=== PATIENT | female | born 1960 | race Two or more races ===

== ENCOUNTER → 2018-05-21 | Outpatient (CLI) | payer OTHER ==
[2016-02-26 17:24] VITALS: BP 149/63
[~2018-05-21] MED LIST: CITA40TA5 PO; CYCL10TA2 PO; DOXY100T PO; INSU100V31 SQ; INSU100V8 SQ; LOSA50TA6 PO; METF10003 PO; METO200T46 PO; OXYC-323 PO; OXYC-328 PO; PANT40TA5 PO; PREG75CA PO; ZOLP10TA PO; [UNRECOGNIZED DRUG - CODE] MC
--- NOTE | 2018-05-21 12:28 | KCIC ---
Two-view left hip dated 05/21/2018. No comparison available. Clinical data indication: Pain after fall. FINDINGS: The left hip show normal bony alignment. No displaced fracture. No acute osseous or articular abnormality. Mild hypertrophic change at the left hip joint. IMPRESSION: No evidence of displaced fracture. If there is clinical concern for occult fracture or insufficiency fracture, MRI or CT would better evaluate. Electronically signed by: Junior Escalante MD (05/21/2018 12:25 PM) [facility]
--- NOTE | 2018-05-22 13:41 | KCIC ---
Bilateral digital screening mammograms: Reason for examination: Routine screening. Comparison is made to previous study dated 07/17/2013. Interpretation was made with the benefit of CAD. The skin and nipples show no abnormalities. No abnormal axillary lymph nodes are seen. The breast parenchyma shows scattered fibroglandular density. (Breast density: Category B.) There continues to be a small nodular density laterally in the left breast on cc view probably at 2:00 position. There are no new dominant masses, suspicious calcifications or architectural distortions. Some benign calcifications are present. Impression: No evidence of malignancy. Recommend routine screening. BI-RADS category 2: Benign "Our facility is accredited by the [employer] Mammography Program." This patient's information has been entered into a reminder system for the patient to be notified with the results of her examination and a target date for the next mammogram. Electronically signed by: Donita Lange MD (05/22/2018 1:39 PM) [facility]
== END | disposition home or self-care (01) ==
LOC: KCIC MAMMO 11:18
PROVIDERS: ATTEND Family Medicine
DX: Z12.31 Encounter for screening mammogram for malignant neoplasm of breast (principal); M89.38 Hypertrophy of bone, other site; I25.2 Old myocardial infarction; I11.0 Hypertensive heart disease with heart failure; I50.9 Heart failure, unspecified; E11.9 Type 2 diabetes mellitus without complications; E78.00 Pure hypercholesterolemia, unspecified; K21.9 Gastro-esophageal reflux disease without esophagitis; Z95.5 Presence of coronary angioplasty implant and graft; Z87.891 Personal history of nicotine dependence; Z90.49 Acquired absence of other specified parts of digestive tract; Z88.8 Allergy status to other drugs, medicaments and biological substances
CPT/HCPCS: 73502; 77067

== ENCOUNTER → 2018-12-18 | Day surgery (SDC) | payer OTHER ==
[~2018-12-18] MED LIST changes: +CLOP75TA PO; +FURO20TA3 PO; +GABA600T7 PO; +IV RINGERS,LACTATED 1000ML 1,000 ML IV SCH; +LIDOCAINE 2% PF 5 ML VIAL. ONE; +LOSA-73 PO; -LOSA50TA6 PO; -METF10003 PO; +METF10007 PO; -OXYC-323 PO; -OXYC-328 PO; +OXYC1TAB15 PO; +OXYC1TAB22 PO; +PROPOFOL 60 ML IV ONE; +SERT100T PO
[2018-12-18 13:25] VITALS: BP 139/63
--- NOTE | 2018-12-22 16:07 | PATHOLOGY ---
[facility] Accession Number: [id number] . 01 Material submitted: . GASTRIC . 01 Clinical history: . GERD, CRC screen . 02 Diagnosis: Gastric biopsy: - Reactive gastropathy. . (M:mm; 12/22/2018) [facility]/12/22/2018 . 02 Comment: Sections of the gastric biopsy reveal segments of gastric antral mucosa showing congestion, foveolar hyperplasia, and no significant inflammation. A properly-controlled immunoperoxidase stain for Helicobacter is obtained and is negative for Helicobacter organisms. The findings are supportive of the diagnosis of reactive gastropathy. There is no evidence of malignancy. . Special stain performed: Immunoperoxidase stain for Helicobacter. . (JPM:mml; 12/22/2018) . 02 Electronically signed: . Derek Villegas MD, Pathologist NPI- [id number] . 01 Gross description: . The specimen is received in formalin, labeled "Long, [place], gastric biopsies", are 3 hook mucosal tissues measuring 0.2 cm, 0.4 cm and a 0.5 cm in greatest dimension, entirely submitted in A1. ([facility]; 12/19/2018) [facility] . 02 Pathologist provided ICD-10: K31.9 . 02 CPT . 513884, [id number] Specimen Comment: A courtesy copy of this report has been sent to Specimen Comment: [phone], . Specimen Comment: Report sent to / DR HUERTAS Performed at: 01 [facility] [address], [place], [place] [id number] MD Olman Alcantara MD Phone: [phone] Performed at: 02 [facility] [address] [place] [address], [place] [id number] MD Derek Villegas MD Phone: [phone]
== END | disposition home or self-care (01) ==
LOC: SURG 10:53
PROVIDERS: ATTEND Internal Medicine Gastroenterology
DX: K31.89 Other diseases of stomach and duodenum (principal); K64.0 First degree hemorrhoids; K21.9 Gastro-esophageal reflux disease without esophagitis; I25.10 Atherosclerotic heart disease of native coronary artery without angina pectoris; F41.9 Anxiety disorder, unspecified; F32.9 Major depressive disorder, single episode, unspecified; E03.9 Hypothyroidism, unspecified; I25.2 Old myocardial infarction; E78.00 Pure hypercholesterolemia, unspecified; M19.90 Unspecified osteoarthritis, unspecified site; I11.0 Hypertensive heart disease with heart failure; I50.9 Heart failure, unspecified; M79.7 Fibromyalgia; E11.40 Type 2 diabetes mellitus with diabetic neuropathy, unspecified; G47.30 Sleep apnea, unspecified; E66.9 Obesity, unspecified; Z68.41 Body mass index [BMI] 40.0-44.9, adult; J44.9 Chronic obstructive pulmonary disease, unspecified; Z88.8 Allergy status to other drugs, medicaments and biological substances; Z79.899 Other long term (current) drug therapy; Z96.651 Presence of right artificial knee joint; Z86.010 Personal history of colon polyps; Z95.5 Presence of coronary angioplasty implant and graft; Z83.71 Family history of colonic polyps; Z83.3 Family history of diabetes mellitus; Z82.49 Family history of ischemic heart disease and other diseases of the circulatory system; Z72.89 Other problems related to lifestyle; Z79.82 Long term (current) use of aspirin; Z79.84 Long term (current) use of oral hypoglycemic drugs; Z90.49 Acquired absence of other specified parts of digestive tract; Z98.890 Other specified postprocedural states
CPT/HCPCS: 43239; 45378; 82962; 88305; 88342; J2001; J2704

== ENCOUNTER → 2018-12-26 | Outpatient (CLI) | payer OTHER ==
[2018-12-18 13:25] VITALS: BP 139/63
[~2018-12-26] MED LIST changes: -IV RINGERS,LACTATED 1000ML 1,000 ML IV SCH; -LIDOCAINE 2% PF 5 ML VIAL. ONE; -PROPOFOL 60 ML IV ONE
--- NOTE | 2018-12-26 14:08 | RAD ---
Gastric Emptying Study 12/26/2018 Indication: Gerd, Nausea, Epigastric pain Procedure: Anterior and posterior projection static images are obtained over the stomach following oral administration of 2 mCi of 99 M technetium sulfur colloid in a solid meal (egg and toast). Time points include an immediate baseline, and 1, 2, 3, and 4 hours post ingestion. Findings: There is progressive emptying of the stomach on sequential images. Percentage retention at... One hour is 59% (normal 34.8-91%). Two hours 36% (normal 2.7-60%). Three hours 33% (normal 0.5-28%). Four hours 6% (normal 0-10%). Impression: Mildly elevated retention at the 3 hour time point with otherwise normal gastric retention percentages. Gastric emptying is felt to most likely be within normal limits. Consensus Recommendations for Gastric Emptying Scintigraphy: A Joint Report of the [place] [employer] and the Society of Nuclear Medicine: J. Nucl. Med. Technol. November 2007 vol. 36 no. 1 44-54 Grading for severity of delayed GE based on the 4-h value: grade 1 (mild): 11?20% retention at 4 h grade 2 (moderate): 21?35% retention at 4 h grade 3 (severe): 36?50% retention at 4 h grade 4 (very severe): >50% retention at 4 h. Electronically signed by: Joseph Wilson MD (12/26/2018 2:05 PM) [facility]
== END | disposition home or self-care (01) ==
LOC: NM 09:45
PROVIDERS: ATTEND Internal Medicine Gastroenterology
DX: K31.89 Other diseases of stomach and duodenum (principal); K21.9 Gastro-esophageal reflux disease without esophagitis
CPT/HCPCS: 78264; A9541